=== PATIENT | female | born 1945 | race Caucasian/White ===

== ENCOUNTER 2017-12-07 13:33 | Inpatient (IN) | payer MEDICARE, OTHER ==
[~2017-12-07] VITALS: Ht 167.6 cm; Wt 64.4 kg
[2017-12-07 15:37] LABS: BASOPHILS # (AUTO) 0.01 x10^3/uL (0-0.1); BASOPHILS % (AUTO) 0 % (0-1); EOSINOPHILS # (AUTO) 0.05 x10^3/uL (0-0.4); EOSINOPHILS % (AUTO) 1 % (1-7); LYMPHOCYTES # (AUTO) 1.52 x10^3/uL (1-3.4); LYMPHOCYTES % (AUTO) 13 % (22-44); MD NO; MEAN CORPUSCULAR HEMOGLOBIN 26.5 pg (27.0-34.8); MEAN CORPUSCULAR HGB CONC 32.9 g/dL (32.4-35.8); MEAN CORPUSCULAR VOLUME 80.5 fL (80-100); MEAN PLATELET VOLUME 6.7 fL (7.4-10.4); MONOCYTES # (AUTO) 0.89 x10^3/uL (0.2-0.8); MONOCYTES % (AUTO) 7 % (2-9); NEUTROPHILS # (AUTO) 9.61 x10^3/uL (1.8-6.8); NEUTROPHILS % (AUTO) 80 % (42-75); PLATELET COUNT 483 x10^3/uL (130-400); RED BLOOD COUNT 3.26 x10^6/uL (3.82-5.3)
[2017-12-07 15:46] LABS: ALBUMIN 3.1 g/dL (3.4-5.0); ANION GAP 10 mmol/L (5-15); CALCIUM 8.9 mg/dL (8.5-10.1); CHLORIDE 103 mmol/L (98-107); CREATININE 1.25 mg/dL (0.55-1.02)
[2017-12-07 15:48] LABS: HCT (SEDRATE) 26.3 % (34.6-47.8)
[2017-12-07] MEDS ORDERED: hydrALAzine 20 MG/ML, 1ML IVPush PRN (18:00)
[2017-12-07] MEDS ORDERED: ONDANSETRON 2MG/ML, 2ML IVPush PRN (18:00)
[2017-12-07] MEDS ORDERED: methylPREDNISolone SOD SUCC 125 MG/2 ML IVPush ONE (18:00)
[2017-12-07] MEDS ORDERED: ACETAMINOPHEN 325 MG TABLET PO PRN (18:00)
[2017-12-07 18:29] LABS: FREE T4 (FREE THYROXINE) 1.24 ng/dL (0.76-1.46); THYROID STIMULATING HORMONE 3.25 mIU/L (0.358-3.740)
[2017-12-07 19:34] LABS: CREATINE KINASE, TOTAL 36 U/L (26-192)
[2017-12-07] MEDS: ENOXAPARIN 40 MG/0.4 ML SQ SCH (20:53)
[2017-12-07] MEDS: INSULIN LISPRO 100 UNITS/ML, PEN SQ-INSULIN SCH (20:53)
[2017-12-07 20:54] VITALS: BP 129/63
[2017-12-07 22:53] LABS: MICROSCOPIC AUTO
[2017-12-07 22:55] LABS: CULTURE INDICATED? YES
[2017-12-08 02:22] VITALS: BP 147/65
[2017-12-08 05:58] LABS: ALANINE AMINOTRANSFERASE 22 U/L (12-78); ALBUMIN 2.9 g/dL (3.4-5.0); ANION GAP 9 mmol/L (5-15); CALCIUM 9.6 mg/dL (8.5-10.1); CHLORIDE 110 mmol/L (98-107); CREATININE 1.14 mg/dL (0.55-1.02)
[2017-12-08 06:03] LABS: HEMOGLOBIN A1C 6.9 % (4.2-6.3)
[2017-12-08] MEDS: LEVOTHYROXINE 88 MCG TABLET PO SCH (06:04)
[2017-12-08 06:08] LABS: % IRON SATURATION 11 % (20-55); ALKALINE PHOSPHATASE 121 U/L (45-117); BILIRUBIN,TOTAL 0.3 mg/dL (0.2-1.0); IRON LEVEL 26 mcg/dL (50-170); TOTAL IRON BINDING CAPACITY 230 mcg/dL (250-450); TOTAL PROTEIN 7.6 g/dL (6.4-8.2)
[2017-12-08 06:13] LABS: BASOPHILS % (AUTO) 0 % (0-1); EOSINOPHILS % (AUTO) 0 % (1-7); LYMPHOCYTES # (AUTO) 0.87 x10^3/uL (1-3.4); LYMPHOCYTES % (AUTO) 12 % (22-44); MD NO; MEAN CORPUSCULAR HEMOGLOBIN 26.4 pg (27.0-34.8); MEAN CORPUSCULAR HGB CONC 33.2 g/dL (32.4-35.8); MEAN CORPUSCULAR VOLUME 79.5 fL (80-100); MONOCYTES # (AUTO) 0.05 x10^3/uL (0.2-0.8); MONOCYTES % (AUTO) 1 % (2-9); NEUTROPHILS # (AUTO) 6.45 x10^3/uL (1.8-6.8); NEUTROPHILS % (AUTO) 88 % (42-75); PLATELET COUNT 457 x10^3/uL (130-400); RED BLOOD COUNT 3.41 x10^6/uL (3.82-5.3); RED CELL DISTRIBUTION WIDTH 15.3 % (9.6-15.2)
[2017-12-08] MEDS: INSULIN LISPRO 100 UNITS/ML, PEN SQ-INSULIN SCH ×4 (07:00→19:45)
[2017-12-08 07:08] VITALS: BP 125/66
[2017-12-08] MEDS: EZETIMIBE 10 MG TABLET PO SCH (08:40)
[2017-12-08] MEDS: AMLODIPINE 2.5 MG TABLET PO SCH (08:40)
[2017-12-08] MEDS ORDERED: GADOBUTROL 10 MMOL/10 ML PFS ONE (12:52)
[2017-12-08 14:12] VITALS: BP_SYST 125; BP_SYST 149; BP_DIAS 53; BP_DIAS 62
[2017-12-08] MEDS: methylPREDNISolone SOD SUCC 125 MG/2 ML IVPush SCH ×2 (14:21→23:06)
[2017-12-08 19:17] VITALS: BP 136/64
[2017-12-08] MEDS: ENOXAPARIN 40 MG/0.4 ML SQ SCH (19:37)
[2017-12-09 01:23] VITALS: BP 153/60
[2017-12-09] MEDS: LEVOTHYROXINE 88 MCG TABLET PO SCH (05:36)
[2017-12-09 07:16] VITALS: BP 145/60
[2017-12-09] MEDS: AMLODIPINE 2.5 MG TABLET PO SCH (08:29)
[2017-12-09] MEDS: INSULIN LISPRO 100 UNITS/ML, PEN SQ-INSULIN SCH ×2 (08:29→11:26)
[2017-12-09] MEDS: EZETIMIBE 10 MG TABLET PO SCH (08:29)
[2017-12-09] MEDS ORDERED: prednisone PO (09:06)
[2017-12-09] MEDS ORDERED: LEVO88TA2 PO (09:06)
[2017-12-09] MEDS ORDERED: EZET10TA18 PO (09:06)
[2017-12-09] MEDS ORDERED: AMLO2.5T PO (09:06)
[2017-12-09] MEDS ORDERED: PRED20TA PO (09:13)
[2017-12-09] MEDS ORDERED: FERR325T18 PO (09:27)
[2017-12-09] MEDS: methylPREDNISolone SOD SUCC 125 MG/2 ML IVPush SCH (11:15)
[2017-12-10 14:08] LABS: ANA SCREEN NEGATIVE (Negative)
== END 2017-12-09 12:10 | disposition home or self-care (01) | DRG 546 ==
LOC: ED 15:48 → EDIP 17:06 → 3NE 18:16
PROVIDERS: ADMIT Internal Medicine; ATTEND Internal Medicine
DX: M35.3 Polymyalgia rheumatica (principal); E44.0 Moderate protein-calorie malnutrition; D50.9 Iron deficiency anemia, unspecified; E03.9 Hypothyroidism, unspecified; E11.22 Type 2 diabetes mellitus with diabetic chronic kidney disease; E78.5 Hyperlipidemia, unspecified; I12.9 Hypertensive chronic kidney disease with stage 1 through stage 4 chronic kidney disease, or unspecified chronic kidney disease; M50.323 Other cervical disc degeneration at C6-C7 level; N18.3 Chronic kidney disease, stage 3 (moderate); M46.92 Unspecified inflammatory spondylopathy, cervical region; Z80.3 Family history of malignant neoplasm of breast
CPT/HCPCS: 36415; 70450; 72125; 72156; 80048; 80053; 81001; 82040; 82550; 82553; 82962; 83036; 83540; 83550; 83735; 84100; 84439; 84443; 85025; 85651; 86038; 86063; 86140; 86430; 86850; 86900; 87086; 96372; 96374; 99285; A9585; J1650; J1815; J2930

== ENCOUNTER 2019-08-23 16:51 | Emergency (ER) | payer OTHER ==
[~2019-08-23] VITALS: Ht 167.6 cm; Wt 70.0 kg
[~2019-08-23 16:51] MED LIST: AMLO2.5T5 PO; EZET10TA70 PO; FERR325T18 PO; LEVO88TA2 PO; PRED20TA PO; prednisone PO
[2019-08-23] MEDS ORDERED: hydrALAzine 20 MG/ML, 1ML IV ONE (17:00)
[2019-08-23] MEDS ORDERED: SODIUM CHLORIDE FLUSH 10ML SYR IVF ONE (17:00)
[2019-08-23] MEDS ORDERED: hydrALAzine 20 MG/ML, 1ML ONE (17:15)
[2019-08-23 17:22] LABS: BASOPHILS # (AUTO) 0.03 x10^3/uL (0-0.1); BASOPHILS % (AUTO) 0 % (0-1); EOSINOPHILS # (AUTO) 0.12 x10^3/uL (0-0.4); EOSINOPHILS % (AUTO) 1 % (1-7); LYMPHOCYTES # (AUTO) 1.46 x10^3/uL (1-3.4); LYMPHOCYTES % (AUTO) 17 % (22-44); MD NO; MEAN CORPUSCULAR HEMOGLOBIN 28.7 pg (27.0-34.8); MEAN CORPUSCULAR HGB CONC 33.4 g/dL (32.4-35.8); MEAN CORPUSCULAR VOLUME 86.1 fL (80-100); MEAN PLATELET VOLUME 7.1 fL (7.4-10.4); MONOCYTES # (AUTO) 0.27 x10^3/uL (0.2-0.8); MONOCYTES % (AUTO) 3 % (2-9); NEUTROPHILS # (AUTO) 6.84 x10^3/uL (1.8-6.8); NEUTROPHILS % (AUTO) 78 % (42-75); PLATELET COUNT 253 x10^3/uL (130-400); RED BLOOD COUNT 4.19 x10^6/uL (3.82-5.3); RED CELL DISTRIBUTION WIDTH 14.8 % (9.6-15.2)
[2019-08-23 17:35] LABS: ALBUMIN 4.1 g/dL (3.4-5.0); ANION GAP 8 mmol/L (5-15); CALCIUM 8.8 mg/dL (8.5-10.1); CHLORIDE 111 mmol/L (98-107); CREATININE 1.22 mg/dL (0.55-1.02)
--- NOTE | 2019-08-23 17:35 | NUR ---
C/C ORDONEZ AO4 COMPLETE EQUAL ROM ALL EXTREMITIES MEDS GIVEN PER ORDERS
[2019-08-23 17:41] LABS: TROPONIN I < 0.015 ng/mL (0.000-0.045)
[2019-08-23] MEDS ORDERED: METOCLOPRAMIDE 5 MG/ML, 2ML ONE (18:55)
[2019-08-23] MEDS ORDERED: DIPHENHYDRAMINE 50 MG/ML, 1ML ONE (18:55)
[2019-08-23] MEDS ORDERED: KETOROLAC 30 MG/1 ML ONE (18:55)
[2019-08-23] MEDS ORDERED: METOCLOPRAMIDE 5 MG/ML, 2ML IVPush ONE (19:00)
[2019-08-23] MEDS ORDERED: KETOROLAC 30 MG/1 ML IVPush ONE (19:00)
[2019-08-23] MEDS ORDERED: DIPHENHYDRAMINE 50 MG/ML, 1ML IVPush ONE (19:00)
--- NOTE | 2019-08-23 19:02 | NUR ---
REPORT FROM CINTIA TAVAREZ
--- NOTE | 2019-08-23 19:36 | NUR ---
PIV THAT WAS PREVIOUSLY ESTABLISHED WAS INFILTRATED. NEW PIV ESTABLISHED AND PT MEDICATED FOR HEADACHE PER ORDERS.
[2019-08-23 20:05] VITALS: BP 174/71
--- NOTE | 2019-08-23 20:06 | NUR ---
PT REPORTS RELIEF OF HEADACHE
== END 2019-08-23 20:18 | disposition home or self-care (01) ==
LOC: ED 18:55
DX: R51 Headache (principal); I10 Essential (primary) hypertension; E78.5 Hyperlipidemia, unspecified; E11.9 Type 2 diabetes mellitus without complications; R94.31 Abnormal electrocardiogram [ECG] [EKG]
CPT/HCPCS: 36415; 71045; 80048; 82040; 84484; 85025; 93005; 96374; 96375; 99285; J0360; J1200; J1885; J2765